=== PATIENT | male | born 1940 | race Caucasian/White ===

== ENCOUNTER → 2017-05-30 | Outpatient (CLI) | payer OTHER, BC | LOC: BMCIMAGING 10:28 | PROVIDERS: ATTEND Internal Medicine | DX: M25.552 Pain in left hip (principal); R93.8 Abnormal findings on diagnostic imaging of other specified body structures; M51.36 Other intervertebral disc degeneration, lumbar region ==

== ENCOUNTER → 2018-07-12 | Outpatient (CLI) | payer OTHER, BC | LOC: FIMAGING 09:42 | PROVIDERS: ATTEND Internal Medicine | DX: J06.9 Acute upper respiratory infection, unspecified (principal); J45.21 Mild intermittent asthma with (acute) exacerbation; R05 Cough; R09.81 Nasal congestion ==